=== PATIENT | female | born 1975 | race Two or more races ===

== ENCOUNTER 2017-07-31 15:16 | Emergency (ER) | payer MEDICAID ==
[~2017-07-31] VITALS: Ht 170.2 cm; Wt 145.1 kg
[2017-07-31 15:49] VITALS: BP 152/87
[2017-07-31 16:25] LABS: Basophils # (auto) 0.1 uL; Eosinophils # (auto) 0.6 uL; Hemoglobin 9.2 g/dL (12.2-16.2); Mean Corpuscular Volume 68.1 fL (80.0-100.0); Monocytes # (auto) 0.5 uL; Neutrophils # (auto) 4.4 uL
[2017-07-31 16:27] LABS: Basophils % (auto) 1.2 % (0.0-2.0); Eosinophils % (auto) 7.4 % (0.0-7.0); Hematocrit 29.7 % (36.0-46.0); Lymphocytes # (auto) 2.5 uL; Lymphocytes % (auto) 31.4 % (10.0-50.0); Mean Corpuscular Hgb Conc. 30.8 g/dL (32.0-36.0); Monocytes % (auto) 5.9 % (0.0-12.0); Neutrophils % (auto) 54.1 % (37.0-80.0); Platelet Count (auto) 299 10^3/uL (140-450); Red Blood Cells 4.37 10^6/uL (4.0-5.20); White Blood Cell 8.1 10^3/uL (4.4-10.8)
[2017-07-31 16:34] LABS: INR 0.97 (0.9-1.15); Partial Thromboplastin Time 24.1 sec (22.64-33.71); Prothrombin Time 10.6 sec (9.37-12.3)
[2017-07-31 16:43] LABS: Alanine Aminotransferase 39 U/L (13-56); Albumin 3.1 g/dL (3.4-5.0); Alkaline Phosphatase 86 U/L (45-117); Anion Gap 10 (5-15); Aspartate Aminotransferase 37 U/L (15-37); BUN/Creatinine Ratio 13.8; Bilirubin, Total 0.6 mg/dL (0.2-1.0); Blood Urea Nitrogen 8 mg/dL (7-18); Calcium 8.3 mg/dL (8.5-10.1); Carbon Dioxide 22 mmol/L (21-32); Chloride 109 mmol/L (98-107); GFR African American 147 mL/min; GFR Non-African American 122 mL/min; Glucose 81 mg/dL (74-106); Magnesium 2.4 mg/dL (1.6-2.6); Potassium 3.7 mmol/L (3.5-5.1); Sodium 141 mmol/L (136-145); Total Protein 7.6 g/dL (6.4-8.2)
[2017-07-31 16:49] LABS: Beta HCG, Quantitative < 1 mlU/mL (1-3); Thyroid Stimulating Hormone 2.28 uIU/mL (0.358-3.74)
[2017-07-31 17:13] LABS: Urine Amorphous Crystal FEW /hpf (None Seen); Urine Bacteria FEW /hpf (None Seen); Urine Blood 2+ /uL (Negative); Urine Mucus FEW (None Seen); Urine Specific Gravity 1.013 (1.001-1.035); Urine WBC 2 /hpf (0 - 5)
== END 2017-08-01 01:53 | disposition left against medical advice (07) ==
LOC: ER 15:25
DX: R07.9 Chest pain, unspecified (principal); Z53.21 Procedure and treatment not carried out due to patient leaving prior to being seen by health care provider
CPT/HCPCS: 36415; 71046; 80053; 81001; 83735; 84443; 84484; 84702; 85025; 85610; 85730; 93005